=== PATIENT | female | born 2000 | race Caucasian/White ===

== ENCOUNTER 2021-01-25 14:21 | Emergency (ER) | payer SELFPAY ==
[~2021-01-25] VITALS: Ht 154.9 cm; Wt 68.0 kg
[2021-01-25] MEDS ORDERED: SODIUM CHLORIDE 0.9% 1000ML 1,000 ML IV STA (14:31)
[2021-01-25] MEDS ORDERED: ONDANSETRON HCL INJ 2MG/ML 2ML 2 MG/ML VIAL IV STA (14:31)
[2021-01-25] MEDS ORDERED: PANTOPRAZOLE 40 MG 10ML VIAL IV STA (14:31)
[2021-01-25] MEDS ORDERED: KETOROLAC TROMETHAMINE 30 MG/ML VIAL IV STA (14:31)
[2021-01-25 14:55] LABS: BASOPHILS % 0.5 % (0.0-1.0); EOSINOPHILS # (AUTO) 0.6 (0.0-0.4); HEMATOCRIT 35.2 % (34.2-44.1); HEMOGLOBIN 10.7 g/dL (12.0-16.0); LYMPHOCYTES # (AUTO) 2.8 (1.0-3.2); LYMPHOCYTES % 33.9 % (18.0-39.1); MEAN CORPUSCULAR HGB CONC 30.4 g/dL (31-35); MEAN CORPUSCULAR VOLUME 82.2 fL (81-99); MONOCYTES # (AUTO) 0.5 (0.2-0.8); MONOCYTES % 6.5 % (4.4-11.3); NEUTROPHILS # (AUTO) 4.2 (2.1-6.9); NEUTROPHILS % 51.9 % (38.7-80.0); PLATELET COUNT 276 x10e3/uL (140-360); RED BLOOD COUNT 4.28 x10e6/uL (3.6-5.1); RED CELL DISTRIBUTION WIDTH 15.8 % (11.7-14.4)
[2021-01-25 14:58] LABS: CLARITY,URINE CLOUDY (CLEAR); COLOR,URINE YELLOW (YELLOW); KETONES,URINE NEGATIVE (NEGATIVE); LEUKOCYTE ESTERASE ,URINE TRACE (NEGATIVE); NITRITE,URINE NEGATIVE (NEGATIVE); PROTEIN,URINE DIPSTICK NEGATIVE (NEGATIVE); URINE UROBILINOGEN 0.2 mg/dL (0.2 - 1)
[2021-01-25 14:59] LABS: PREGNANCY TEST, URINE NEGATIVE (NEGATIVE)
[2021-01-25 15:09] LABS: ALBUMIN 3.7 g/dL (3.5-5.0); ALBUMIN/GLOBULIN RATIO 1.2 (0.8-2.0); ALKALINE PHOSPHATASE 52 IU/L (40-150); BLOOD UREA NITROGEN 11 mg/dL (7-26); BUN/CREATININE RATIO 15 (6-25); CALCIUM 8.7 mg/dL (8.4-10.2); CARBON DIOXIDE 24 mmol/L (22-29); CHLORIDE 107 mmol/L (98-107); CREATININE, SERUM 0.73 mg/dL (0.57-1.11); EST GLOMERULAR FILTRATION RATE > 60 ML/MIN (60-); GLUCOSE 82 mg/dL (74-118); LIPASE 7 U/L (8-78); SODIUM 140 mmol/L (136-145)
[2021-01-25 15:10] LABS: BACTERIA,URINE MODERATE /HPF; EPITHELIAL CELLS,URINE MANY /LPF; RBC,URINE 0-5 /HPF (0-5)
[2021-01-25 15:38] LABS: ALANINE AMINOTRANSFERASE 7 IU/L (0-55)
[2021-01-25] MEDS ORDERED: IOPAMIDOL 370 MG/ML 200 ML INFUS..BTL INJ ONE (15:59)
[2021-01-25] MEDS ORDERED: SODIUM CHLORIDE 0.9% 50ML 50 ML ONE (15:59)
== END 2021-01-25 16:25 | disposition home or self-care (01) ==
LOC: ER 15:02
DX: R10.31 Right lower quadrant pain (principal); R11.2 Nausea with vomiting, unspecified; N39.0 Urinary tract infection, site not specified; F17.210 Nicotine dependence, cigarettes, uncomplicated
CPT/HCPCS: 36415; 74177; 80053; 81001; 81025; 83690; 85025; 87086; 99284; C9113; J1885; J2405; J7030; Q9967

== ENCOUNTER → 2021-01-25 | Emergency (ER) | payer SELFPAY ==
[~2021-01-25] VITALS: Ht 154.9 cm; Wt 68.0 kg
== END | disposition home or self-care (01) ==
LOC: ER 21:55
DX: R10.31 Right lower quadrant pain (principal); R11.2 Nausea with vomiting, unspecified; N39.0 Urinary tract infection, site not specified
CPT/HCPCS: 99282

== ENCOUNTER 2021-03-24 10:37 | Emergency (ER) | payer SELFPAY ==
[~2021-03-24] VITALS: Ht 154.9 cm; Wt 68.0 kg
[2021-03-24] MEDS ORDERED: IBUPROFEN 600 MG TAB PO STA (11:06)
[2021-03-24] MEDS ORDERED: ACETAMINOPHEN/CODEINE 300MG - 30MG TAB ONE (11:08)
[2021-03-24] MEDS ORDERED: IBUPROFEN 600 MG TAB ONE (11:08)
[2021-03-24] MEDS ORDERED: ACETAMINOPHEN/CODEINE 300MG - 30MG TAB PO ONE (11:15)
== END 2021-03-24 11:48 | disposition home or self-care (01) ==
LOC: ER 11:01
DX: R07.81 Pleurodynia (principal); W50.1XXA Accidental kick by another person, initial encounter; Y92.008 Other place in unspecified non-institutional (private) residence as the place of occurrence of the external cause
CPT/HCPCS: 99282

== ENCOUNTER 2021-05-05 09:10 | Emergency (ER) | payer SELFPAY ==
[~2021-05-05] VITALS: Ht 154.9 cm; Wt 68.0 kg
[2021-05-05] MEDS ORDERED: GUAIFENESIN 600MG/DEXTROMETHORPHAN 30MG TABSR PO STA (09:22)
[2021-05-05] MEDS ORDERED: KETOROLAC TROMETHAMINE 30 MG/ML VIAL IM STA (09:22)
[2021-05-05] MEDS ORDERED: MUCINEX DM ER1 EACH PO (09:25)
[2021-05-05] MEDS ORDERED: PROVENTIL HFA6.7 GM INH (09:25)
[2021-05-05] MEDS ORDERED: ONDANSETRON ODT4 MG PO (09:25)
[2021-05-05] MEDS ORDERED: ONDANSETRON HCL 4 MG ORAL DISINTEGRATING TAB PO ONE (09:30)
== END 2021-05-05 10:25 | disposition home or self-care (01) ==
LOC: ER 09:43
DX: R07.89 Other chest pain (principal); R06.02 Shortness of breath; R05 Cough; J06.9 Acute upper respiratory infection, unspecified
CPT/HCPCS: 71045; 93005; 99283; J1885; Q0162

== ENCOUNTER 2021-05-21 23:54 | Emergency (ER) | payer SELFPAY ==
[~2021-05-21] VITALS: Ht 154.9 cm; Wt 68.0 kg
[~2021-05-21 23:54] MED LIST: MUCINEX DM ER1 EACH PO; ONDANSETRON ODT4 MG PO; PROVENTIL HFA6.7 GM INH
== END 2021-05-22 00:05 | disposition home or self-care (01) ==
LOC: ER 23:59
DX: H60.91 Unspecified otitis externa, right ear (principal)
CPT/HCPCS: 99283